=== PATIENT | female | born 1995 | race Caucasian/White ===

== ENCOUNTER 2022-08-24 21:34 | Emergency (ER) | payer OTHER, SELFPAY ==
[2022-08-24 22:39] VITALS: BP 146/83; PULSE 83; RESP 18; TEMP 36.8; O2SAT 98; BMI 26.6
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
--- NOTE | 2022-08-24 22:44 | XR_ITS ---
PROCEDURE INFORMATION: Exam: XR Right Forearm Exam date and time: 08/24/2022 10:53 PM Age: 26 years old Clinical indication: Right; Patient HX: Injury RT wrist pain and swelling TECHNIQUE: Imaging protocol: Radiologic exam of the Right forearm. Views: 2 views. COMPARISON: CR XR WRIST RT MIN 3V 08/24/2022 10:51 PM FINDINGS: Bones/joints: There is a comminuted but minimally displaced fracture of the distal ulnar metadiaphysis with slight medial and dorsal angulation. Radius, carpal bones, and proximal ulna are intact. Visualized elbow appears normal. Soft tissues: Normal. IMPRESSION: Fracture of the distal ulnar metadiaphysis noted with minimal dorsal and medial angulation and prominent regional soft tissue swelling.
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
[2022-08-25 01:17] VITALS: BP 140/80; PULSE 83; RESP 18; TEMP 36.9; O2SAT 98
== END 2022-08-25 01:28 | disposition home or self-care (01) ==
PROVIDERS: Emergency Provider Student in an Organized Health Care Education/Training Program
DX: S52.601A Unspecified fracture of lower end of right ulna, initial encounter for closed fracture (principal); W20.8XXA Other cause of strike by thrown, projected or falling object, initial encounter; Z23 Encounter for immunization; Z72.0 Tobacco use
CPT/HCPCS: 29126; 73090; 73110; 73130; 90471; 90714; 99284

== ENCOUNTER → 2022-08-26 11:43 | Outpatient (CLI) | payer OTHER, SELFPAY ==
--- NOTE | 2022-08-26 11:51 | XR_ITS ---
FINAL REPORT CLINICAL HISTORY: wrist fracture COMPARISON: August 24, 2022 FINDINGS: 3 views of the right wrist were obtained. There has been interval cast placement. There is a comminuted and dorsally angulated fracture of the distal ulna diaphysis. No other fractures are identified. IMPRESSION: Distal ulna fracture with overlying cast. Reviewed, Interpreted and Dictated by Al Hall MD Transcribed by Alli Ricks Authenticated and [facility]
== END ==
PROVIDERS: PCP Physician Assistant Surgical; Visit Provider Physician Assistant Surgical
DX: S52.601A Unspecified fracture of lower end of right ulna, initial encounter for closed fracture (principal)
CPT/HCPCS: 73110

== ENCOUNTER → 2022-08-29 10:23 | Outpatient (CLI) | payer OTHER, SELFPAY ==
--- NOTE | 2022-08-29 10:30 | XR_ITS ---
FINAL REPORT CLINICAL HISTORY: fracture f/u rt wrist COMPARISON: No ever 05/08/2022 FINDINGS: 3 views of the right wrist were obtained. There is overlying cast material. There is a mildly comminuted fracture of the distal ulna diaphysis. No other fractures identified. IMPRESSION: Mildly comminuted fracture of the distal ulna diaphysis. Reviewed, Interpreted and Dictated by Al Hall MD Transcribed by Alli Ricks Authenticated and [facility]
== END ==
PROVIDERS: PCP Physician Assistant Surgical; Visit Provider Physician Assistant Surgical
DX: S52.601A Unspecified fracture of lower end of right ulna, initial encounter for closed fracture (principal)
CPT/HCPCS: 73110

== ENCOUNTER → 2022-09-03 14:01 | Outpatient (CLI) | payer OTHER, SELFPAY ==
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
[2022-09-03 16:09] LABS: Microscopic, Urine URINE MICROSCOPIC (MICROSCOPIC)
[2022-09-03 17:32] LABS: Appearance,Urine CLOUDY (Clear); Bilirubin,Urine Negative (Negative); Blood, Urine Negative (Negative); Color,Urine DK YELLOW (Yellow); Glucose,Urine (UA) Negative (Negative); Ketones,Urine Negative (Negative); Leukocyte Esterase,Urine TRACE (Negative); Nitrate,Urine POSITIVE (Negative); Protein,Urine Negative (Negative); Specific Gravity, Urine >= 1.030 (1.005-1.030); Urobilinogen,Urine 0.2 EU/dl (0.2)
[2022-09-03 17:36] LABS: Bacteria,Urine Trace /lpf; Squamous Epithelial Cell,Urine Occasional #/hpf (0-5); Urine Pregnancy, HCG Qual. Negative (Negative); WBC,Urine Occasional #/hpf (0-3)
[2022-09-03 19:16] LABS: Basophils # 0.2 K/mm3 (0-0.2); Basophils % 1.3 % (0.1-2.0); Eosinophils # 0.2 K/mm3 (0.0-0.4); Eosinophils % 1.3 % (0.1-12.0); Hematocrit 43.3 % (37.0-47.0); Hemoglobin 14.2 g/dL (12.2-16.2); Lymphocytes # 3.2 K/mm3 (0.7-4.5); Lymphocytes % 26.4 % (10-50); Mean Corpuscular HGB Conc 32.8 g/dL (31.8-35.4); Mean Corpuscular Hemoglobin 30.6 pg (27.0-31.2); Mean Corpuscular Volume 93.2 fl (81-99); Monocytes # 0.7 K/mm3 (0.1-1.0); Monocytes % 5.4 % (1.7-9.3); Neutrophils # 7.9 K/mm3 (1.8-7.8); Neutrophils % 65.6 % (37.0-80.0); Platelet Count 350 K/mm3 (142-424); Red Blood Count 4.65 M/mm3 (4.20-5.40); Red Cell Distribution Width 14.1 % (11.5-17.5); White Blood Count 12.1 K/mm3 (4.8-10.8)
[2022-09-03 19:23] LABS: Alanine Aminotransferase 16 U/L (12-78); Albumin Level 4.7 g/dl (3.5-5.0); Albumin/Globulin Ratio 1.7 (1.1-1.8); Alkaline Phosphatase 85 U/L (38-126); Anion Gap 18.5 mEq/L (5-15); Aspartate Amino Transferase 23 U/L (14-36); Bilirubin,Total 0.4 mg/dl (0.2-1.3); Blood Urea Nitrogen 14 mg/dl (7-17); Calcium 10.1 mg/dl (8.4-10.2); Carbon Dioxide 29 mmol/L (22.0-30.0); Chloride 97 mmol/L (98-107); Estimated Glomerular Filt Rate 119 ml/min (>60); GFR (African American) 144 ML/MIN (>60); Globulin 2.8 g/dL (1.3-3.2); Glucose 76 mg/dl (74-100); Potassium 4.5 mmoL/L (3.5-5.1); Sodium 140 mmol/L (136-145); Total Protein,Serum 7.5 g/dl (6.3-8.2)
== END ==
PROVIDERS: Visit Provider Physician Assistant Surgical
DX: Z01.818 Encounter for other preprocedural examination (principal); S52.601A Unspecified fracture of lower end of right ulna, initial encounter for closed fracture
CPT/HCPCS: 36415; 73110; 80053; 81001; 81025; 85025

== ENCOUNTER 2022-09-06 10:09 | Day surgery (SDC) | payer OTHER, SELFPAY ==
[2022-09-05 08:24] VITALS: BMI 26.6
[2022-09-06] VITALS (11 sets, daily range): BP systolic 122–161; BP diastolic 80–99; PULSE 73–96; RESP 16–18; TEMP 36.2–43; O2SAT 95–99
--- NOTE | 2022-09-06 13:00 | XR_ITS ---
FINAL REPORT CLINICAL HISTORY: ORIF FT 0:58 FINDINGS: 5 fluoroscopic spot films were obtained demonstrating left wrist ORIF. 0.58 minutes of fluoroscopy time is reported. IMPRESSION: ORIF of the left wrist. 0.58 minutes of fluoroscopy time. Reviewed, Interpreted and Dictated by Khalif Davis III, MD Transcribed by Nancy Catalan Authenticated and [facility]
--- NOTE | 2022-09-06 13:39 | EXP.ANES.CKL ---
[facility] Medical History No significant past medical history Family History Other No significant family history Social History (Updated 09/06/22 @ 10:42 by Moira Payne, RN) Smoking Status: Current every day smoker tobacco type: cigarettes packs per day: 1 years smoked: 8 alcohol intake: never substance use type: denies use current occupational status: unemployed Travel in the last 8 weeks: None household members: children [facility] Anesthesia Checklist Patient Identification Patient Identification: Arm Band and Verbal (Name & ) Structural Data Admitted From: Home Planned Operative Procedure/s: Right Ulnar ORIF Consent for Planned Operative Procedure(s) Verified: Yes Verified Documents: Surgical Consent NPO Status Verified Time NPO: 00:00 Chart Verification Results Verified: HCG Additional verifications Anesthesia Reactions: No Hx Blood Transfusions: No Blood Transfusion Reaction: No Airway Assessment C-Spine Mobility Assessed: Yes TMJ Mobility Assessed: Yes Dentition: Poor Dentition Neurological Assessment Level of Consciousness: Awake, Alert and Appropriate Anesthesia Plan Anesthesia Risk discussed: Yes ASA Class: II Anesthesia Type: General
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
--- NOTE | 2022-09-06 15:18 | P.PNANES_ITS ---
[facility] Anesthesia Record Part I Anesthesia Record I Intake, IV Amount: 900 Estimated blood loss (mL): 5 Urine output (mL): 0 Blood Pressure: 152/81 SaO2: 95 Pulse Rate: 73 Respiratory Rate: 18 Temperature: 97.2 F Patient is:: Drowsy and Stable Stable to PACU at:: 15:05
--- NOTE | 2022-09-06 17:39 | P.PNANES_ITS ---
[facility] Anesthesia Record Part II Anesthesia Record Part II Discharge Time: 15:35 Destination: Surgical Day Care (OP Surgery) PACU nurse assessment reviewed?: Yes Patient Condition:: Good Anesthesia Complications:: None Swallowing reflex intact?: Yes Cyanosis?: No Blood Pressure: 160/95 Pulse Rate: 91 Temperature: 97.3 F Mental Status: Alert & Oriented Pain level:: 0 Nausea and/or vomitting:: None Intake, IV Amount: 0
== END 2022-09-06 16:06 | disposition home or self-care (01) ==
PROVIDERS: Visit Provider Orthopaedic Surgery
PROC: (CPT 25545; principal; 2022-09-06 11:45)
DX: S52.251A Displaced comminuted fracture of shaft of ulna, right arm, initial encounter for closed fracture (principal); W23.1XXA Caught, crushed, jammed, or pinched between stationary objects, initial encounter; Y07.03 Male partner, perpetrator of maltreatment and neglect
CPT/HCPCS: 25545; 73100; 76000; 96374; C1713; C1776; J2405

== ENCOUNTER → 2022-09-19 08:36 | Outpatient (CLI) | payer OTHER, SELFPAY ==
--- NOTE | 2022-09-19 08:44 | XR_ITS ---
FINAL REPORT CLINICAL HISTORY: s/p ORIF COMPARISON: 09/03/2022 FINDINGS: Right wrist Three views were obtained. There has been change in the cast noted previously. There is now a cast over the medial wrist and forearm. There has been interval placement in sideplate and screws securing a healing fracture of the distal ulna. IMPRESSION: Interval internal fixation distal ulnar fracture with progressive healing. Reviewed, Interpreted and Dictated by Al Hall MD Transcribed by Maggie Rodarte Authenticated and [facility]
== END ==
PROVIDERS: Visit Provider Orthopaedic Surgery
DX: M25.531 Pain in right wrist (principal); S52.601A Unspecified fracture of lower end of right ulna, initial encounter for closed fracture
CPT/HCPCS: 73110

== ENCOUNTER 2022-09-19 09:39 | Outpatient (RCR) | payer OTHER, SELFPAY | END 2022-09-19 10:30 | disposition home or self-care (01) | LOC: OT 09:39 | PROVIDERS: Visit Provider Orthopaedic Surgery | DX: M25.531 Pain in right wrist (principal); S52.601A Unspecified fracture of lower end of right ulna, initial encounter for closed fracture | CPT/HCPCS: 97763 ==

== ENCOUNTER → 2022-10-25 10:22 | Outpatient (CLI) | payer OTHER, SELFPAY ==
--- NOTE | 2022-10-25 10:28 | XR_ITS ---
FINAL REPORT CLINICAL HISTORY: s/p wrist fracture COMPARISON: 09/19/2022 FINDINGS: Right wrist Three views were obtained. There is near complete healing of the distal ulnar fracture. The hardware is unremarkable. The joint spaces appear normal. No soft tissue abnormality is identified. IMPRESSION: Near complete healing of the distal ulnar fracture. Reviewed, Interpreted and Dictated by Maria Luisa Morrow MD Transcribed by Maggie Rodarte Authenticated and [facility]
== END ==
PROVIDERS: Visit Provider Orthopaedic Surgery
DX: S52.601A Unspecified fracture of lower end of right ulna, initial encounter for closed fracture (principal); Z09 Encounter for follow-up examination after completed treatment for conditions other than malignant neoplasm
CPT/HCPCS: 73110

== ENCOUNTER → 2022-11-29 09:44 | Outpatient (CLI) | payer OTHER, SELFPAY ==
--- NOTE | 2022-11-29 09:52 | XR_ITS ---
FINAL REPORT CLINICAL HISTORY: injury COMPARISON: 10/25/2022 FINDINGS: RIGHT WRIST Three views of the right wrist were obtained. A sideplate and screws are securing the distal ulna. There is overlying callus formation. There is no acute fracture dislocation. The visualized joint spaces are normally aligned. The joint spaces are intact. The soft tissues are unremarkable. IMPRESSION: Healing distal ulnar fracture. Reviewed, Interpreted and Dictated by Al Hall MD Transcribed by Jayne Jon Authenticated and [facility]
== END ==
PROVIDERS: Visit Provider Orthopaedic Surgery
DX: M25.531 Pain in right wrist (principal); S52.601A Unspecified fracture of lower end of right ulna, initial encounter for closed fracture
CPT/HCPCS: 73110

== ENCOUNTER 2025-09-03 22:10 | Emergency (ER) | payer OTHER, SELFPAY ==
[2025-09-03 22:18] VITALS: BP 153/90; PULSE 92; RESP 22; TEMP 36.8; O2SAT 98; BMI 23.5
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
[2025-09-03 22:32] VITALS: BP 153/89; PULSE 92; RESP 22; TEMP 36.8; O2SAT 98
== END 2025-09-03 22:35 | disposition home or self-care (01) ==
LOC: ER 22:33
PROVIDERS: Emergency Provider Student in an Organized Health Care Education/Training Program
DX: Z00.8 Encounter for other general examination (principal)
CPT/HCPCS: 99282